=== PATIENT | male | born 1955 | race Caucasian/White ===

== ENCOUNTER 2019-05-19 16:42 | Emergency (ER) | payer SELFPAY ==
[~2019-05-19] VITALS: Ht 175.3 cm; Wt 93.0 kg
[~2019-05-19 16:42] MED LIST: ALTOPREV40 MG PO; DAILY VITAMIN1 EAC2 PO; LISINOPRIL10 MG PO; METOPROLOL SUCC50 MG PO; NORCO 5-325 TA1 EACH PO; XARELTO20 MG PO
[2019-05-19] MEDS ORDERED: OXYCODONE HCL5 MG PO (19:01)
[2019-05-19] MEDS ORDERED: ZOFRAN4 MG PO (19:01)
--- NOTE | 2019-05-20 11:39 | EKG ---
[facility] [address] [facility] [place], [place] [address] Signed Atrial fibrillation with rapid ventricular response with premature ventricular or aberrantly conducted complexes ST \T\ T wave abnormality, consider lateral ischemia Abnormal ECG No previous ECGs available Confirmed by CHELLY MARTIN DO ([id number]) on 05/20/2019 11:39:19 AM Electronically Signed By: CHELLY MARTIN DO 05/20/19 1139 PATIENT NAME: ADOLFOKARON LORENA Electrocardiogram DATE OF : 51 PHYSICIAN: CHELLY MARTIN DO REPORT #: [id number] REPORT IS CONFIDENTIAL AND NOT TO BE RELEASED WITHOUT AUTHORIZATION
== END 2019-05-19 19:25 | disposition home or self-care (01) ==
LOC: ED 16:42
DX: S20.212A Contusion of left front wall of thorax, initial encounter (principal); I48.91 Unspecified atrial fibrillation; V86.59XA Driver of other special all-terrain or other off-road motor vehicle injured in nontraffic accident, initial encounter; I10 Essential (primary) hypertension; Z79.899 Other long term (current) drug therapy
CPT/HCPCS: 70450; 71046; 72125; 80053; 84484; 85025; 93005; 93010; 96374; 96376; 99285-25

== ENCOUNTER 2021-02-13 07:48 | Day surgery (SDC) | payer MEDICARE, OTHER ==
[~2021-02-13] VITALS: Ht 175.3 cm; Wt 101.0 kg
[~2021-02-13 07:48] MED LIST changes: +OXYCODONE HCL5 MG PO; +ZOFRAN4 MG PO
[2021-02-13] MEDS ORDERED: HYDROCHLOROTH12.5 MG PO (08:04)
[2021-02-13] MEDS ORDERED: LOSARTAN POTAS100 MG PO (08:05)
--- NOTE | 2021-02-13 09:04 | NUR ---
02/13/21 0904 [place] 0810 PT TO PACU SLEEPY O2 VIA NASAL CANNULA
--- NOTE | 2021-02-14 07:30 | OR ---
[facility] [address] [place], [place] [address] Signed DATE OF OPERATION: 02/13/2021 SURGEON: Rosa Toth MD PREOPERATIVE DIAGNOSES: 1. Personal history of colonic polyps. 2. Minimal sigmoid diverticulosis. 3. Minimal internal hemorrhoids. 4. Mother with colon cancer at age 83. POSTOPERATIVE DIAGNOSES: 1. 4 mm polyp at 12 cm. 2. Minimal sigmoid diverticulosis. 3. Minimal internal hemorrhoids. PROCEDURE: Colonoscopy with hot biopsy. ESTIMATED BLOOD LOSS: None. INDICATIONS: Karon is a 65-year-old gentleman, asked to see me for a followup colonoscopy. Dr. Stefano Fine removed a colonic polyp back in 2003. He went to see Dr. Will in 2004 and had an unremarkable followup colonoscopy. He went back to Dr. Will in 2011 and had hyperplastic rectal polyps removed along with minimal sigmoid diverticulosis and minimal internal hemorrhoids. I performed a colonoscopy for him in 2014 and again, he had hyperplastic polyps, the diverticulosis, and internal hemorrhoids. We know he has no lower GI complaints recently. His mother did develop colon cancer at age 83. He returns now for followup colonoscopy. In the office, I gave him a pamphlet on colonoscopy and we reviewed the nature of that test. He understands the test quite well. He understands there is risk including, but not limited to gas bloating, crampy abdominal pain, bleeding, perforation requiring surgery, and missed diagnosis. He also understands the need for IV conscious sedation. He is aware that the Versed and fentanyl make him groggy for about a day. I explained to Karon that is expected and intentional. He understands that he needs a ride home and someone to be with him following the procedure. He had expressed understanding and wished to proceed. PROCEDURE NOTE: Karon was taken into our endoscopy suite and placed in the left lateral decubitus Electronically Signed By: ROSA TOTH MD 02/14/21 0730 PATIENT NAME: KARON MATA OPERATIVE REPORT DATE OF : 51 REPORT #: [id number] PHYSICIAN: ROSA TOTH MD PCP: RANDY ELLIS MD REPORT IS CONFIDENTIAL AND NOT TO BE RELEASED WITHOUT AUTHORIZATION [facility] [address] [place], [place] [address] Signed position. He was given IV sedation with 6 mg of Versed and 125 mcg of fentanyl. A digital rectal exam was performed and this was unremarkable. He does have some enlargement and induration to the prostate gland. The adult colonoscope was introduced and advanced quite readily up into the cecum itself. It took a little extra sedation abdominal compression in order to advance the scope the last bed into the cecum itself. His prep was quite excellent. We could easily see the appendiceal orifice and the ileocecal valve. We took pictures throughout for photodocumentation. The scope had been slowly withdrawn. Once again, he has a few diverticula in the sigmoid colon. They were moderate in size, few in number, and scattered about. At 12 cm in the rectum, he had a tiny 4 mm polyp, which we removed easily with hot biopsy forceps. Upon retroflexion of the scope, we could again see some minimal internal hemorrhoid tissue. After this, the gas was suctioned out and colonoscope removed. Karon tolerated the procedure quite well. RECOMMENDATIONS: I will see Karon back in my office in 7 to 14 days to review his results. MD JOHNSON Rodriguez/MODL /[id number] cc: MD Rosa Chapman MD Chart Filed Incomplete Copies: RANDY ELLIS MD, ANDREW L MD CHART FILED INCOMPLETE ~ Electronically Signed By: ROSA TOTH MD 02/14/21 0730 PATIENT NAME: KARON MATA OPERATIVE REPORT DATE OF : 51 REPORT #: [id number] PHYSICIAN: ROSA TOTH MD PCP: RANDY ELLIS MD REPORT IS CONFIDENTIAL AND NOT TO BE RELEASED WITHOUT AUTHORIZATION
--- NOTE | 2021-02-15 11:57 | PATH ---
[facility] [address] [place], [place] [address] Signed SPECIMEN(S): A COLON POLYP AT 12 CM SPECIMEN SOURCE: A. COLON POLYP AT 12 CM CLINICAL HISTORY: Colonoscopy. History of polyps and diverticulosis. Postop: Polyp, diverticulosis, internal hemorrhoids. MICROSCOPIC DESCRIPTION: Histologic sections of all submitted blocks are examined by light microscopy. These findings, together with the gross examination, support the pathologic diagnosis. FINAL PATHOLOGIC DIAGNOSIS: Colon, polyp at 12 cm, polypectomy: - Hyperplastic polyp. - Negative for dysplasia or malignancy. NAL:cml:C2NR GROSS DESCRIPTION: The specimen, labeled "CD, 1," and designated on the requisition "colon polyp at 12 cm," is received in formalin and consists of one ramirez soft tissue fragment that measures 0.3 cm in greatest dimension. The specimen is entirely submitted in cassette (A1). AT (under the direct supervision of a pathologist) The Gross Description was prepared using a voice recognition system. The report was reviewed for accuracy; however, sound-alike word errors, addition and/or deletions may occur. If there is any question about this report, please contact Client Services. PERFORMING LABORATORY: The technical component was performed by [email or web address], [address] [place] [id number] ([employer]: Uma Starkey MD; CLIA# [id number]). [email or web address] [address] [address] (CLIA# [id number]). Diagnostician: Mary Araujo MD Pathologist Electronically Signed 02/15/2021 PATIENT NAME: KARON MATA PATHOLOGY DATE OF : 51 REPORT #: [id number] PHYSICIAN: JESSIE PATHOLOGY PCP: RANDY ELLIS MD REPORT IS CONFIDENTIAL AND NOT TO BE RELEASED WITHOUT AUTHORIZATION [address] [address] Signed Copies: ~ PATIENT NAME: KARON MATA PATHOLOGY DATE OF : 51 REPORT #: [id number] PHYSICIAN: JESSIE PATHOLOGY PCP: RANDY ELLIS MD REPORT IS CONFIDENTIAL AND NOT TO BE RELEASED WITHOUT AUTHORIZATION
== END 2021-02-13 09:35 | disposition home or self-care (01) ==
LOC: OPS 07:48 → DS 07:48 → OPS 09:00
PROVIDERS: ATTEND Colon & Rectal Surgery
PROC: 0DBP8ZX Excision of Rectum, Via Natural or Artificial Opening Endoscopic, Diagnostic (ICD-10-PCS; principal; 2021-02-13 09:00)
DX: K62.1 Rectal polyp (principal); K64.8 Other hemorrhoids; K57.30 Diverticulosis of large intestine without perforation or abscess without bleeding; I10 Essential (primary) hypertension; Z79.01 Long term (current) use of anticoagulants; Z86.010 Personal history of colon polyps; Z80.0 Family history of malignant neoplasm of digestive organs
CPT/HCPCS: G0500; J2250; J3010